=== PATIENT | female | born 1955 | race Caucasian/White ===

== ENCOUNTER 2021-02-12 21:35 | Emergency (ER) | payer MEDICARE, SELFPAY ==
[2021-02-12 21:44] VITALS: BP 124/73; PULSE 99; RESP 26; TEMP 36.3; O2SAT 93; BMI 20.2
[2021-02-12 22:04] VITALS: BP 133/78; PULSE 93; RESP 18; O2SAT 92
--- NOTE | 2021-02-12 22:12 | W.ED.SOB ---
HPI - SOB/Dyspnea General: Chief Complaint: Shortness of Breath/Dyspnea Stated Complaint: DIFF BREATHING/HX COPD Time Seen by Provider: 02/12/21 21:58 Source: patient and family Mode of arrival: ambulatory Limitations: no limitations History of Present Illness: HPI Narrative: Patient is a nice 65-year-old female with a history of COPD who presents to ED today along with her daughter for complaints of an exacerbation. Patient tells me she normally wears 3L O2. Daughter states earlier this morning she noticed sats were at 88%. Patient tells me she does feel slightly more short of breath than normal. She has not been running fevers. She does not complain of any chest pain. Despite symptoms she has not had to increase her oxygen. MD elicited complaint: shortness of breath Pertinent past history: COPD Onset (ago): day(s) Exacerbating factors: lying flat and exertion Relieving factors: oxygen Known history of: COPD Associated symptoms: Reports no associated symptoms, chest congestion and orthopnea (chronic); Deny chest pain, fever(s), hemoptysis, lightheadedness, nausea, palpitations, syncope or vomiting Treatment prior to arrival: oxygen and bronchodilator Related Data: Home oxygen amount: 3 liters Review of Systems Const: Denies: fever(s), chills, body aches, fatigue or malaise Eyes: Denies: change in vision ENMT: Denies: throat pain or odynophagia Card: Reports: dyspnea on exertion (chronic) and orthopnea (chronic); Denies: chest pain, palpitations, irregular heart rhythm, edema, swelling of feet/ankles, lightheadedness, syncope or pre-syncope Resp: Reports: dyspnea, productive cough and chest congestion; Denies: wheezing, pain on inspiration or hemoptysis GI: Denies: nausea or vomiting Musc: Denies: neck pain or back pain Skin/Breast: Denies: rash Neuro: Denies: headache(s) Physical Exam Const: COMMON NORMALS: no acute distress, patient oriented x3, no limitations, alert and well nourished GENERAL APPEARANCE: cooperative NUTRITIONAL APPEARANCE: thin ORIENTATION/CONSCIOUSNESS: Yes awake, Yes oriented to person, Yes oriented to place and Yes oriented to time HENMT: COMMON NORMALS: normocephalic and atraumatic HEAD & SCALP: normocephalic and atraumatic Resp: COMMON NORMALS: normal respiratory effort and clear to auscultation bilaterally AUSCULTATION: clear to auscultation bilaterally Cardio: COMMON NORMALS: regular rate and regular rhythm RATE: regular rate RHYTHM: regular rhythm Extremity: COMMON NORMALS: no pedal edema Neuro: COMMON NORMALS: patient oriented x3 SENSORIUM/ORIENTATION: Yes alert, Yes oriented to person, Yes oriented to place and Yes oriented to time Skin: COMMON NORMALS: no rashes or lesions noted GENERAL SKIN EXAM: no rashes or lesions noted Course Vital Signs: Vital signs: Vital Signs Temperature 97.4 F L 02/12/21 21:44 Pulse Rate 93 02/12/21 22:04 Respiratory Rate 18 02/12/21 22:04 Blood Pressure 133/78 02/12/21 22:04 Pulse Oximetry 92 02/12/21 22:04 MDM - SOB/Dyspnea MDM Narrative: Medical decision making narrative: Patient has sat at 93% on her normal 3L throughout her stay. Remainder of patient's vitals are stable. Patient's white count is normal. She has a normal lactate and procalcitonin. Patient does not want to come into the hospital nor do I feel she warrants admission at this time. She is stable for outpatient therapy. Will place patient on Prednisone and Levaquin. Will place information with case management to get her set up with a associate manager here in [facility] as well as a primary care provider. Return to ED precautions given. Lab Data: Labs: Lab Results 02/12/21 02/12/21 02/12/21 Range/Units 22:20 22:20 22:20 WBC 8.5 (4.0-10.0) 10^3/ uL RBC 4.26 (4.1-5.3) 10^6/u L Hgb 12.8 (11.5-15.3) g/dL Hct 39.6 (37.0-47.0) % MCV 93.0 (81-99) fL MCH 30.0 (28.0-34.0) pg MCHC 32.3 (30.0-36.0) g/dL RDW 13.7 (12.1-15.1) % Plt Count 308 (130-400) 10^3/c mm MPV 11.2 H (7.4-10.4) fL Neut % (Auto) 61.6 % Lymph % (Auto) 23.7 % [place] % (Auto) 9.6 % Eos % (Auto) 4.1 % Baso % (Auto) 0.9 % Neut # (Auto) 5.25 (1.8-7.7) 10^3/u L Lymph # (Auto) 2.0 (0.8-4.8) 10^3/u L [place] # (Auto) 0.8 (0.2-0.9) 10^3/u L Eos # (Auto) 0.4 (0.0-0.8) 10^3/u L Baso # (Auto) 0.1 (0.0-0.1) 10^3/u L Nucleated RBC % (a uto) 0 % Nucleated RBCs # 0.0 /100WBC Sodium 140 (136-145) mmol/L Potassium 3.6 (3.5-5.1) mmol/L Chloride 104 (98-107) mmol/L Carbon Dioxide 27 (22-29) mmol/L Anion Gap 12.6 (5-19) BUN 12 (8-23) mg/dL Creatinine 0.6 (0.5-0.9) mg/dL GFR Calculation 100.6 (90-130) mL/min Glucose 104 (65-115) mg/dL Calculated Osmolal ity 290 (285-295) mOsm/k g Lactic Acid 0.7 (0.5-2.2) mmol/L Calcium 8.6 (8.5-10.5) mg/dL Total Bilirubin 0.2 (0.15-1.2) mg/dL AST 15 (0-32) U/L ALT 7 (0-33) U/L Alkaline Phosphata se 86 (35-105) IU/L Total Protein 6.4 L (6.6-8.7) g/dL Albumin 4.1 (3.5-5.2) g/dL Globulin 2.3 (1.3-4.6) g/dL Procalcitonin 0.04 (0-0.5) ng/mL Imaging Data^: CXR: Radiologist's impression: [address] [address] XRay Report Signed Patient: CIERA MANDUJANO Unit #: [id number] : 1955 [facility]#:[id number] Age/Sex: 65 / F ADM Date: 02/12/21 Loc: ER Room/Bed: Attending Dr: Ordering Provider/Ordering MD: Christy Bach Date of Service: 02/12/21 Procedure(s): XR chest 1V portable [id number] Accession Number(s): [id number] Report Number: [id number] PROCEDURE INFORMATION: Exam: XR Chest Exam date and time: 02/12/2021 10:14 PM Age: 65 years old Clinical indication: Cough and shortness of breath; Patient HX: Cough and SOB. History of copd. TECHNIQUE: Imaging protocol: XR of the chest. Views: 1 view. COMPARISON: No relevant prior studies available. FINDINGS: Lungs: Unremarkable. No consolidation. Pleural spaces: Unremarkable. No pleural effusion. No pneumothorax. Heart/Mediastinum: Unremarkable. No cardiomegaly. Bones/joints: Unremarkable. XR/XR chest 1V portable [id number] IMPRESSION: No acute findings. Dictated By: Addison Deleon Signed By: Addison Deleon Signed Date/Time: 02/12/212254 DD/ 52 EKG Data^: EKG 1: EKG Interpretation Date: 02/12/21 EKG interpretation time: 21:57 Interpretation: Sinus rhythm Rate [address] elevation or depression changes noted Discharge Plan Discharge Patient Disposition: Home Clinical Impression: COPD with acute exacerbation Condition: Stable Prescriptions: New levofloxacin 500 mg tablet 500 mg PO DAILY 7 Days Qty: 7 RF: 0 prednisone 10 mg tablet 30 mg PO DAILY 5 Days Qty: 15 RF: 0 Discharge Orders: Discharge ED (Routine); Ordered 02/12/21 Ordered By: Christy Bach Patient Instructions: Levofloxacin (By mouth), Chronic Obstructive Pulmonary Disease (ED) Coding Level of Care Code ED Tape Weaver for Chg Fwd Exam Detailed
[2021-02-12 22:28] LABS: Basophils # 0.1 10^3/uL (0.0-0.1); Basophils % 0.9 %; Eosinophils # 0.4 10^3/uL (0.0-0.8); Eosinophils % 4.1 %; Hematocrit 39.6 % (37.0-47.0); Hemoglobin 12.8 g/dL (11.5-15.3); Lymphocytes % 23.7 %; Mean Corpuscular HGB Conc 32.3 g/dL (30.0-36.0); Mean Platelet Volume 11.2 fL (7.4-10.4); Monocytes # 0.8 10^3/uL (0.2-0.9); Monocytes % 9.6 %; Neutrophils # 5.25 10^3/uL (1.8-7.7); Neutrophils % 61.6 %; Nucleated Red Blood Cells % 0 %; Platelet Count 308 10^3/cmm (130-400); Red Blood Count 4.26 10^6/uL (4.1-5.3); Red Cell Distribution Width 13.7 % (12.1-15.1); White Blood Count 8.5 10^3/uL (4.0-10.0)
[2021-02-12 22:43] LABS: Lactic Sepsis W/Reflex 0.7 mmol/L (0.5-2.2)
[2021-02-12 22:53] LABS: Procalcitonin 0.04 ng/mL (0-0.5)
[2021-02-12 23:04] LABS: Alanine Aminotransferase 7 U/L (0-33); Albumin Level 4.1 g/dL (3.5-5.2); Alkaline Phosphatase 86 IU/L (35-105); Anion Gap 12.6 (5-19); Aspartate Amino Transferase 15 U/L (0-32); Blood Urea Nitrogen 12 mg/dL (8-23); Calcium 8.6 mg/dL (8.5-10.5); Carbon Dioxide 27 mmol/L (22-29); Chloride 104 mmol/L (98-107); Globulin 2.3 g/dL (1.3-4.6); Glomerular Filtration Rate 100.6 mL/min (90-130); Glucose 104 mg/dL (65-115); Osmolality Calculated 290 mOsm/kg (285-295); Potassium 3.6 mmol/L (3.5-5.1); Sodium 140 mmol/L (136-145); Total Bilirubin 0.2 mg/dL (0.15-1.2); Total Protein 6.4 g/dL (6.6-8.7)
[2021-02-12 23:35] VITALS: BP 121/77; PULSE 79; RESP 26; O2SAT 93
--- NOTE | 2021-02-16 10:04 | DCPLANNER ---
process control manager had message to speak with patient about getting established with a primary care physician. process control manager called phone number [phone], unable to speak with patient at this time, unable to leave a voicemail for patient at this time, due to no voicemail box set up.
== END 2021-02-12 23:30 | disposition home or self-care (01) ==
PROVIDERS: Emergency Provider Physician Assistant
DX: J44.1 Chronic obstructive pulmonary disease with (acute) exacerbation (principal); Z99.81 Dependence on supplemental oxygen
CPT/HCPCS: 71045; 80053; 83605; 84145; 85025; 99283

== ENCOUNTER 2021-02-26 23:10 | Emergency (ER) | payer MEDICARE, SELFPAY ==
[2021-02-26 23:13] VITALS: BP 146/83; PULSE 93; RESP 18; TEMP 36.4; O2SAT 92; BMI 20.7
[2021-02-26 23:45] VITALS: BP 117/77; PULSE 84; RESP 15; O2SAT 97
[2021-02-26 23:47] VITALS: PULSE 84; RESP 17; O2SAT 98
--- NOTE | 2021-02-26 23:55 | XRR_ITS ---
PROCEDURE INFORMATION: Exam: XR Chest Exam date and time: 02/26/2021 11:59 PM Age: 65 years old Clinical indication: Shortness of breath; Patient HX: Copd exacerbation; Additional info: SOB TECHNIQUE: Imaging protocol: XR of the chest. Views: 1 view. COMPARISON: No relevant prior studies available. FINDINGS: Lungs: There is no consolidation. Pleural spaces: There is no pleural effusion or pneumothorax. Heart/Mediastinum: Cardiomediastinal contours are unremarkable. Bones/joints: Bones are unremarkable. XR/XR chest 1V portable [id number] IMPRESSION: No acute findings.
[2021-02-27 00:08] VITALS: PULSE 79; RESP 18; O2SAT 95
[2021-02-27] MEDS: ipratropium-albuterol 3 mL Neb INHALATION (00:08)
[2021-02-27 00:11] VITALS: PULSE 82
[2021-02-27 00:17] VITALS: BP 118/81; PULSE 86; RESP 17; O2SAT 97
[2021-02-27 01:03] VITALS: PULSE 95; O2SAT 93
--- NOTE | 2021-02-27 05:32 | ED_ITS ---
HPI - SOB/Dyspnea General: Chief Complaint: Shortness of Breath/Dyspnea Stated Complaint: COPD EXACERBATION Time Seen by Provider: 02/26/21 23:30 History of Present Illness: HPI Narrative: 65-year-old lady with COPD. She is usually on 3 L at home. She was seen a couple of weeks ago in the ER for an exacerbation of COPD. She notes that she improved on medication, but she does not believe she was treated long enough, as her symptoms have returned. She has had to go up to 4 L of oxygen. She is wheezing more. She is more short of breath. She is getting some cough with yellow sputum. She denies any fever MD elicited complaint: shortness of breath and cough Pertinent past history: COPD Onset (ago): week(s) Context: recent illness Timing: intermittent and progressively worsening Severity: moderate Exacerbating factors: lying flat and exertion Relieving factors: oxygen and bronchodilators Known history of: COPD Associated symptoms: Reports chest pain (With cough only) and cough; Deny abdominal pain, fever(s) or palpitations Review of Systems Const: Denies: fever(s), chills or body aches Card: Reports: chest pain (With cough only); Denies: palpitations GI: Denies: abdominal pain Physical Exam Const: COMMON NORMALS: no acute distress GENERAL APPEARANCE: cooperative and diaphoretic NUTRITIONAL APPEARANCE: cachectic ORIENTATION/CONSCIOUSNESS: Yes awake, Yes oriented to person, Yes oriented to place and Yes oriented to time Chest: COMMONS NORMALS: normal inspection of the chest Resp: EFFORT & INSPECTION: No pursed lip breathing, Yes labored, No stridor, No retractions and Yes tracheal deviation AUSCULTATION: wheezes scattered wheezes and throughout and diminished lung sounds GI: COMMON NORMALS: Normal to inspection, nondistended, normoactive bowel sounds present, Soft to palpation and no masses PALPATION: Yes Soft to palpation Neuro: SENSORIUM/ORIENTATION: Yes oriented to person, Yes oriented to place and Yes oriented to time Course Vital Signs: Vital signs: Vital Signs Temperature 97.6 F 02/26/21 23:13 Pulse Rate 95 02/27/21 01:03 Respiratory Rate 17 02/27/21 00:17 Blood Pressure 118/81 02/27/21 00:17 Pulse Oximetry 93 02/27/21 01:03 MDM - SOB/Dyspnea MDM Narrative: Medical decision making narrative: Patient sats are well on 4 L of oxygen. She has a concentrator that goes up to 5 at home. Her x-ray is negative. She will be placed on doxycycline for 2 weeks, and a tapering dose of steroid. He has breathing treatments at home, and a rescue inhaler. She is encouraged to schedule her breathing treatments every 4 hours while awake. Discharge Plan Discharge Patient Disposition: Home Clinical Impression: Acute exacerbation of chronic obstructive airways disease Condition: Stable Prescriptions: New doxycycline hyclate 100 mg capsule 100 mg PO BID 14 Days Qty: 28 RF: 0 prednisone 10 mg tablet See Rx Instructions .ROUTE .COMPLEX Qty: 40 RF: 0 Discharge Orders: Discharge ED (Routine); Ordered 02/27/21 Ordered By: Philip Gibbs Discharge Diet: Usual diet Discharge Activity: Resume usual activity Patient Instructions: Chronic Obstructive Pulmonary Disease (ED) Activity Restrictions/Additional Instructions: Return for worsening shortness of breath despite treatment, fever greater than 100 despite 2-3 doses of antibiotics, chest discomfort, lethargy, mental status changes, any other concerning symptoms peer Coding Level of Care Code ED Regional Sales Coordinator for [place] Du
== END 2021-02-27 01:05 | disposition home or self-care (01) ==
PROVIDERS: Emergency Provider Emergency Medicine
DX: J44.1 Chronic obstructive pulmonary disease with (acute) exacerbation (principal)
CPT/HCPCS: 71045; 94640; 96374; 99283; J2930

== ENCOUNTER → 2021-06-04 11:16 | Outpatient (BNVA) | payer MEDICARE, SELFPAY | PROVIDERS: PCP Nurse Practitioner; Visit Provider Nurse Practitioner | DX: I10 Essential (primary) hypertension (principal); J44.9 Chronic obstructive pulmonary disease, unspecified; F41.9 Anxiety disorder, unspecified | CPT/HCPCS: 80053; 80061; 84443; 85025 ==

== ENCOUNTER → 2021-06-07 13:52 | Outpatient (BNVA) | payer MEDICARE, SELFPAY | PROVIDERS: PCP Nurse Practitioner; Visit Provider Nurse Practitioner | DX: R73.9 Hyperglycemia, unspecified (principal); I10 Essential (primary) hypertension; J44.9 Chronic obstructive pulmonary disease, unspecified | CPT/HCPCS: 71046 ==

== ENCOUNTER → 2021-09-06 14:25 | Outpatient (BNVA) | payer MEDICARE, SELFPAY | PROVIDERS: PCP Nurse Practitioner; Visit Provider Nurse Practitioner | DX: E78.2 Mixed hyperlipidemia (principal) | CPT/HCPCS: 80053 ==

== ENCOUNTER → 2022-01-05 10:41 | Outpatient (BNVA) | payer MEDICARE, SELFPAY | PROVIDERS: PCP Nurse Practitioner; Visit Provider Nurse Practitioner | DX: J44.1 Chronic obstructive pulmonary disease with (acute) exacerbation (principal) | CPT/HCPCS: 80053; 85025 ==

== ENCOUNTER → 2022-09-01 14:52 | Outpatient (BNVA) | payer OTHER, SELFPAY | PROVIDERS: PCP Family Medicine; Visit Provider Family Medicine | DX: J45.909 Unspecified asthma, uncomplicated (principal); J44.9 Chronic obstructive pulmonary disease, unspecified; I10 Essential (primary) hypertension; E78.2 Mixed hyperlipidemia; Z23 Encounter for immunization | CPT/HCPCS: 80053; 80061; 82043; 85025 ==